=== PATIENT | female | born 1970 | race Caucasian/White ===

== ENCOUNTER 2016-10-17 00:07 | Emergency (ER) | payer OTHER ==
[~2016-10-17] VITALS: Ht 154.9 cm; Wt 54.4 kg
[2016-10-17] MEDS ORDERED: PARO10TA81 PO (00:40)
--- NOTE | 2016-10-17 00:46 | ED Cough/URI ---
General Chief Complaint: Cough/Cold/Flu Symptoms Stated Complaint: FEVER 101.2,ACHE ALL OVER Nursing Triage Note: Pt c/o congestion and NGUYEN for several days and fever/body aches starting yesterday (10/16) Source: patient History of Present Illness Time seen by provider: 00:33 Initial Comments C/O COUGH, RARELY PRODUCTIVE OF COLORED SPUTUM SINCE 10/07/16 NASAL CONGESTION, CLEAR DRAINAGE FOR A FEW DAYS HAS HAD FEVER UP TO 101.2 OFF AND ON SINCE 10/07/16, BODY ACHES AND HEADACHE YESTERDAY DID A "VIDEOCHAT" ON PHONE YESTERDAY WITH UNKNOWN PROVIDER "FROM AN [facility] ON MY PHONE" AND RX FOR AMOXIL WAS CALLED IN ALSO TAKING OTC MUCINEX COLD/SINUS PLUS SALAS WITHOUT IMPROVEMENT NO CHEST PAIN OR SHORTNESS OF BREATH NO NAUSEA/VOMITING NO KNOWN SICK CONTACTS PCP: DR. MELO ( WAS DR. ROSARIO PT) Allergies and Home Medications Allergies Coded Allergies: No Known Drug Allergies (Unverified , 10/17/16) Home Medications Benzonatate 100 Mg Capsule #30 1-2 TAB PO TID Prescribed by: ADRIA CORRAL on 10/17/16 0124 Cefdinir 300 Mg Capsule #20 300 MG PO BID Prescribed by: ADRIA CORRAL on 10/17/16 0124 Paroxetine HCl 10 Mg Tablet 10 MG PO DAILY (Reported) Constitutional: see HPI fever malaise EENTM: nose congestion see HPINo ear pain, No throat pain Respiratory: see HPI coughNo short of breath, No wheezing Cardiovascular: no symptoms reported Gastrointestinal: no symptoms reported Genitourinary: no symptoms reported Musculoskeletal: see HPI (BODY ACHES) Skin: no symptoms reported Psychiatric/Neurological: See HPI Headache Hematologic/Lymphatic: No Symptoms Reported Immunological/Allergic: no symptoms reported Past Looycrj-Vruped-Hvvbdl Hx Patient Social History Alcohol Use: Occasionally Uses Recreational Drug Use: No Smoking Status: Never a Smoker Recent Foreign Travel: No Contact w/Someone Who Travel: No Recent Infectious Disease Expo: No Recent Hopitalizations: No Physical Abuse Screen: No Sexual Abuse: No Seasonal Allergies Seasonal Allergies: No Surgeries HX Surgeries: Yes Surgeries: Appendectomy Respiratory Hx Respiratory Disorders: No Cardiovascular Hx Cardiac Disorders: No Neurological Hx Neurological Disorders: No Reproductive System Hx Reproductive Disorders: No Genitourinary Hx Genitourinary Disorders: No Gastrointestinal Hx Gastrointestinal Disorders: No Musculoskeletal Hx Musculoskeletal Disorders: No Endocrine Hx Endocrine Disorders: No HEENT HX ENT Disorders: No Cancer Hx Cancer: No Psychosocial Hx Psychiatric Problems: No Integumentary HX Skin/Integumentary Disorder: No Blood Transfusions Hx Blood Disorders: No Physical Exam Vital Signs Vital Sign - Last 12Hours Capillary Refill : Less Than 3 Seconds General Appearance: WD/WN no apparent distress HEENT: PERRL/EOMINo pharyngeal erythema, No tonsillar exudate, other (NASAL MUCOSAL EDEMA AND CLEAR RHINORRHEA AND POST NASAL DRAINAGE. NO SINUS TENDERNESS. ) Neck: non-tender full range of motion supple normal inspectionNo lymphadenopathy (R), No lymphadenopathy (L) Respiratory: normal breath sounds no respiratory distress no accessory muscle use Cardiovascular: normal peripheral pulses regular rate, rhythm no edema no JVD no murmur Gastrointestinal: normal bowel sounds non tender soft no organomegaly Extremities: normal inspection Neurologic/Psychiatric: rn concurrent review II-XII nml as tested no motor/sensory deficits alert normal mood/affect oriented x 3 Skin: normal color warm/dryNo rash Progress/Results/Core Measures Results/Orders Micro Results Microbiology 10/17/16 Influenza Types A,B Antigen (DAVE) - Final, Complete My Orders Orders-ADRIA CORRAL DO Influenza A And B Antigens (10/17/16 00:34) Ceftriaxone Injection (Rocephin Injectio (10/17/16 01:30) Lidocaine 1% Injection (Xylocaine 1% Inj (10/17/16 01:30) Benzonatate Capsule (Tessalon Perles) (10/17/16 01:30) Medications Given in ED Current Medications Medications Dose Ordered Sig/Shaina Route Start Time Stop Time Status Last Admin Dose Admin Ceftriaxone Sodium 1,000 mg ONCE ONCE IM 10/17/16 01:30 10/17/16 01:31 DC 10/17/16 01:35 1,000 MG Lidocaine HCl 2.1 ml ONCE ONCE INJ 10/17/16 01:30 10/17/16 01:31 DC 10/17/16 01:36 2.1 ML Vital Signs/I&O Vital Sign - Last 12Hours 10/17/16 10/17/16 10/17/16 00:30 00:30 01:48 Temp 100.2 100.2 Pulse 123 110 Resp 18 18 B/P 126/86 Pulse Ox 98 98 O2 Delivery Room Air Room Air Room Air Blood Pressure Mean: 99 Departure Impression Impression: Primary Impression: Bronchitis Additional Impression: Upper respiratory infection Disposition: 01 HOME, SELF-CARE Condition: Stable Departure-Patient Inst. Referrals: RAQUEL MELO MD (PCP/Family) Primary Care Physician Patient Instructions: Acute Bronchitis, Adult (DC), Bacterial Upper Respiratory Infection, Adult (DC) Add. Discharge Instructions: CONTINUE MUCINEX AND SALAS TYLENOL 1 GRAM /MOTRIN 800 MG 4 TIMES A DAY NEEDED FOR PAIN OR FEVER LOTS OF CLEAR LIQUIDS FOLLOW UP WITH YOUR DR IN 3-4 DAYS IF NO BETTER All discharge instructions reviewed with patient and/or family. Voiced understanding. Scripts Benzonatate (Tessalon Perle)100 Mg Capsule1-2 Tab PO TID Cough #30 CAP Prov:ADRIA CORRAL DO 10/17/16 Cefdinir 300 Mg [id number] Mg PO BID FOR INFECTION #20 CAP Prov:ADRIA CORRAL DO 10/17/16 ADRIA CORRAL DO Oct 17, 2016 00:46
[2016-10-17] MEDS ORDERED: CEFD300C3 PO (01:24)
[2016-10-17] MEDS ORDERED: BENZ-13 PO (01:24)
[2016-10-17] MEDS ORDERED: LIDOCAINE 1% INJ 20 ML (XYLOCAINE) VIAL INJ ONE (01:30)
[2016-10-17] MEDS ORDERED: cefTRIAXone 1 GM (ROCEPHIN) VIAL IM ONE (01:30)
[2016-10-17] MEDS ORDERED: BENZONATATE 100 MG (TESSALON) CAPSULE PO SCH (01:30)
[2016-10-17 01:48] VITALS: BP 126/86
== END 2016-10-17 01:48 | disposition home or self-care (01) ==
LOC: EDUNIT# 00:07 → ER 00:10
DX: J06.9 Acute upper respiratory infection, unspecified (principal); J40 Bronchitis, not specified as acute or chronic
CPT/HCPCS: 87804; 96372; 99283

== ENCOUNTER → 2017-08-10 | Outpatient (CLI) | payer OTHER ==
[~2017-08-10] MED LIST: BENZ-13 PO; CEFD300C3 PO; PARO10TA81 PO
== END ==
LOC: RAD 15:39
PROVIDERS: ATTEND Obstetrics & Gynecology
DX: Z12.31 Encounter for screening mammogram for malignant neoplasm of breast (principal); Z98.82 Breast implant status
CPT/HCPCS: 77067

== ENCOUNTER → 2018-08-26 | Outpatient (CLI) | payer OTHER ==
[~2018-08-26] MED LIST changes: -BENZ-13 PO; +BENZ100C18 PO
--- NOTE | 2018-08-26 12:13 | Diagnostic Imaging Report ---
INDICATION: Routine screening. COMPARISON: Comparison is made with prior mammograms from 08/10/2017 and 07/09/2016. TECHNIQUE: 2D and 3D bilateral screening mammography was performed with computer-aided detection (CAD) system. FINDINGS: Bilateral breast implants are again noted. Implant contours appear to be smooth. Both breasts appear heterogeneously dense, limiting the sensitivity of mammography. The parenchymal pattern is stable. No mass or malignant appearing microcalcifications are seen. The axillae are unremarkable. IMPRESSION: No mammographic features suspicious for malignancy are identified. ACR BI-RADS Category 2: Benign findings. Result letter will be mailed to the patient. Note: At least 10% of breast cancer is not imaged by mammography. Dictated by: Dictated on workstation # [id number]
== END ==
LOC: RAD 10:01
PROVIDERS: ATTEND Obstetrics & Gynecology
DX: Z12.31 Encounter for screening mammogram for malignant neoplasm of breast (principal)
CPT/HCPCS: 77067

== ENCOUNTER → 2019-08-29 | Outpatient (CLI) | payer OTHER ==
--- NOTE | 2019-08-29 13:16 | Diagnostic Imaging Report ---
INDICATION: Routine screening. COMPARISON: 08/26/2018 and 08/10/2017. TECHNIQUE: 2D and 3D bilateral screening mammography was performed with CAD. FINDINGS: Bilateral breast implants are again noted. The implant contours appear to be stable. Both breasts are heterogeneously dense, limiting the sensitivity of mammography. Benign calcifications in the right breast are noted. No mass or malignant appearing microcalcifications are seen. The axillae are unremarkable. IMPRESSION: No mammographic features suspicious for malignancy are identified. ACR BI-RADS Category 2: Benign findings. Result letter will be mailed to the patient. Note: At least 10% of breast cancer is not imaged by mammography. Dictated by: Dictated on workstation # [id number]
--- NOTE | 2019-08-29 17:18 | Diagnostic Imaging Report ---
PROCEDURE: US Non-ob pelvis comp/trans. TECHNIQUE: Multiple realtime grayscale images were obtained of the pelvis in various projections endovaginally. Transabdominal imaging was also performed. INDICATION: Uterine enlargement. FINDINGS: The uterus measures 9.2 x 5.9 x 5.7 cm. Endometrium is approximately 10 mm in thickness. There is a 1 cm cervical nabothian cyst. There is an anechoic structure in the region of the left uterine fundus measuring approximately 13 mm in size most suggestive of a small cyst. Left ovary could not be visualized. Right ovary measures 3.8 x 3.6 x 2.6 cm. Right ovary does contain a 3.2 cm cyst which does show some internal complexity and septations. There is blood flow to the right ovary. No free fluid is seen. IMPRESSION: 1. Myometrial cyst. 2. Right ovarian complex cyst 3.2 cm in size. Dictated by: Dictated on workstation # [id number]
== END ==
LOC: RAD 10:45
PROVIDERS: ATTEND Obstetrics & Gynecology
DX: Z12.31 Encounter for screening mammogram for malignant neoplasm of breast (principal); N83.201 Unspecified ovarian cyst, right side; N85.2 Hypertrophy of uterus; N85.4 Malposition of uterus; N85.8 Other specified noninflammatory disorders of uterus
CPT/HCPCS: 76830; 76856; 77067

== ENCOUNTER 2019-10-10 08:54 | Outpatient (CLI) | payer OTHER ==
[~2019-10-10] VITALS: Ht 157 cm; Wt 56.9 kg
[2019-10-10 09:06] VITALS: BP 119/74
[2019-10-10 09:43] LABS: BASOPHILS % (AUTO) 0 % (0-10); EOSINOPHILS # (AUTO) 0.1 10^3/uL (0.0-0.3); EOSINOPHILS % (AUTO) 1 % (0-10); HEMATOCRIT 41 % (35-52); HEMOGLOBIN 13.4 G/DL (11.5-16.0); LYMPHOCYTES # (AUTO) 1.4 X 10^3 (1.0-4.0); LYMPHOCYTES % (AUTO) 29 % (12-44); MEAN CORPUSCULAR HEMOGLOBIN 31 PG (25-34); MEAN CORPUSCULAR HGB CONC 33 G/DL (32-36); MEAN CORPUSCULAR VOLUME 95 FL (80-99); MEAN PLATELET VOLUME 9.5 FL (7.4-10.4); MONOCYTES # (AUTO) 0.3 X 10^3 (0.0-1.0); MONOCYTES % (AUTO) 7 % (0-12); NEUTROPHILS % (AUTO) 63 % (42-75); PLATELET COUNT 368 10^3/uL (130-400); RED CELL DISTRIBUTION WIDTH 13.8 % (10.0-14.5); WHITE BLOOD COUNT 4.9 10^3/uL (4.3-11.0)
[2019-10-10 09:44] LABS: BILIRUBIN,URINE NEGATIVE (NEGATIVE); CLARITY,URINE CLEAR; COLOR,URINE YELLOW; GLUCOSE, URINE (UA) NEGATIVE (NEGATIVE); KETONES,URINE NEGATIVE (NEGATIVE); LEUKOCYTE ESTERASE ,URINE TRACE (NEGATIVE); NITRITE,URINE NEGATIVE (NEGATIVE); PROTEIN,URINE NEGATIVE (NEGATIVE)
[2019-10-10 09:54] LABS: BACTERIA,URINE NEGATIVE /HPF; RBC,URINE 0-2 /HPF
== END 2019-10-10 13:18 | disposition home or self-care (01) ==
LOC: PREOP 08:54
PROVIDERS: ATTEND Obstetrics & Gynecology
DX: Z01.818 Encounter for other preprocedural examination (principal); N85.8 Other specified noninflammatory disorders of uterus
CPT/HCPCS: 36415; 81000; 85025; 86850; 86900; 86901; 87081

== ENCOUNTER → 2020-11-15 | Outpatient (CLI) | payer OTHER ==
[~2020-11-15] MED LIST changes: +ACET-93 PO; +IBUP-844 PO; +OXC5T PO
--- NOTE | 2020-11-15 18:11 | Diagnostic Imaging Report ---
INDICATION: Routine screening. COMPARISON: Prior mammograms from 08/29/2019 and 08/26/2018. EXAMINATION: 2D and 3D bilateral screening mammography was performed with CAD. 3D tomographic images were obtained and reviewed. The current study was also evaluated with a Computer Aided Detection (CAD) system. FINDINGS: Bilateral breast implants are noted. Implant contours remain stable. Breast parenchyma is heterogeneously dense, limiting the sensitivity of mammography. No mass or malignant appearing microcalcifications are seen. Axillae are unremarkable. IMPRESSION: No mammographic feature suspicious for malignancy is identified. ACR BI-RADS Category 2: Benign findings. Result letter will be mailed to the patient. Note: At least 10% of breast cancer is not imaged by mammography. Dictated by: Dictated on workstation # [id number]
== END ==
LOC: RAD 10:45
PROVIDERS: ATTEND Obstetrics & Gynecology
DX: Z12.31 Encounter for screening mammogram for malignant neoplasm of breast (principal)
CPT/HCPCS: 77063; 77067

== ENCOUNTER → 2021-11-24 | Outpatient (CLI) | payer OTHER ==
--- NOTE | 2021-11-24 12:09 | Diagnostic Imaging Report ---
INDICATION: Routine screening. Comparison is made with prior mammogram 11/15/2020 and 08/29/2019. 2-D and 3-D bilateral screening mammography was performed CAD. Bilateral subpectoral breast implants again noted. Implant contours remain smooth. Both breasts are heterogeneously dense, limiting the sensitivity of mammography. The overall parenchymal pattern stable. No mass or malignant-appearing microcalcifications are seen. Axillae are unremarkable. IMPRESSION: No mammographic features suspicious for malignancy are identified. BI-RADS Category 2 ACR BI-RADS Category 2: Benign findings. Result letter will be mailed to the patient. Note: At least 10% of breast cancer is not imaged by mammography. Dictated by: Dictated on workstation # [id number]
== END ==
LOC: RAD 11:00
PROVIDERS: ATTEND Obstetrics & Gynecology
DX: Z12.31 Encounter for screening mammogram for malignant neoplasm of breast (principal)
CPT/HCPCS: 77063; 77067

== ENCOUNTER → 2022-11-25 | Outpatient (CLI) | payer OTHER ==
[~2022-11-25] MED LIST changes: +PARO-134 PO; -PARO10TA81 PO
--- NOTE | 2022-11-25 12:22 | Diagnostic Imaging Report ---
Indication: Routine screening. Comparison is made with prior mammogram 11/16/2021 and 11/15/2020. 2-D and 3-D bilateral screening mammography was performed with CAD. CAD is utilized. The current study was also evaluated with a Computer Aided Detection (CAD) system. Bilateral subpectoral breast implants are again noted. Implant contours remain smooth, without evidence of extracapsular rupture. Both breasts are heterogeneously dense, limiting the sensitivity of mammography. The parenchymal pattern is stable. No mass or malignant-appearing microcalcifications are seen. Axillae are unremarkable. IMPRESSION: BI-RADS Category 2 No mammographic features suspicious for malignancy are identified. ACR BI-RADS Category 2: Benign findings. Result letter will be mailed to the patient. Note: At least 10% of breast cancer is not imaged by mammography. Dictated by: Dictated on workstation # [id number]
== END ==
LOC: RAD 10:58
PROVIDERS: ATTEND Nurse Practitioner Women's Health
DX: Z12.31 Encounter for screening mammogram for malignant neoplasm of breast (principal)
CPT/HCPCS: 77063; 77067